=== PATIENT | female | born 2000 | race Two or more races ===

== ENCOUNTER 2020-02-29 19:47 | Emergency (ER) | payer OTHER ==
[2020-02-29 20:04] VITALS: BP 113/82; PULSE 74; TEMP 98; BMI 28.3
[2020-02-29] MEDS ORDERED: IBUPROFEN 600 MG TABLET (FP) PO ONE ×2 (20:33→20:54)
--- NOTE | 2020-02-29 21:02 | PDOC ---
History of Present Illness - General Chief Complaint: Injury Stated Complaint: L THUMB INJURY Time Seen by Provider: 02/29/20 20:22 History Source: Patient Exam Limitations: No Limitations - History of Present Illness Initial Comments: 02/29/20 21:03 Patient is a 19-year-old female with no past medical history presents to the ED with complaint of a left thumb injury after closing her finger in the door. She states the door was a wood door. She had to have somebody open the door because she was unable to do so on her own. She denies any numbness or tingling. The patient does have acrylic nails and states she is concerned that she may have broken her thumb. She has not taken anything for pain. She states the injury happened about 2 hours ago. Past History - Medical History Allergies/Adverse Reactions: Allergies Allergy/AdvReac Type Severity Reaction Status Date / Time No Known Allergies Allergy Verified 02/29/20 20:02 - Reproductive History Is Patient Now?: No - Psycho-Social/Smoking History Smoking History: Never smoked - Substance Abuse Hx (Audit-C & DAST Scrn) How often the patient has a drink containing alcohol: Never Score: In Men: 4 or > Positive; In Women: 3 or > Positive: 0 Screen Result (Pos requires Nsg. Audit-10AR): Negative Review of Systems - Review of Systems Comments:: 02/29/20 21:04 - Review of Systems Able to Perform ROS?: Yes Constitutional: No: Fever, Chills, Loss of Appetite, Night Sweats, Weakness HEENTM: No: Eye Pain, Vision changes, Ear Pain, Throat Pain, Throat Swelling, Mouth Pain, Difficulty Swallowing Respiratory: No: Cough, Shortness of Breath, Wheezing, Sputum Production Cardiac (ROS): No: Chest Pain, Chest Tightness, Palpitations, Irregular Heart Beat, Edema ABD/GI: No: Nausea, Vomiting, Abdominal Pain, Diarrhea Musculoskeletal: No: Muscle Pain, Back Pain, Joint Pain, Muscle Weakness, Neck P ain; positive: Left thumb crush injury Integumentary: No: Lesions, Rash Neurological: No: Headache, Numbness, Tingling, Weakness, Speech Difficulties *Physical Exam - Vital Signs Last Vital Signs Temp Pulse Resp BP Pulse Ox 98.0 F 74 18 113/82 100 02/29/20 20:02 02/29/20 20:02 02/29/20 20:02 02/29/20 20:02 02/29/20 20:02 - Physical Exam 02/29/20 21:04 - Physical Exam General Appearance: Nourished, Appropriately Dressed, No Distress Neck: Supple, No Lymphadenopathy (R), No Lymphadenopathy (L), No Rigidity, No Decreased range of motion Respiratory/Chest: Lungs Clear, Normal Breath Sounds. No Respiratory Distress, No Accessory Muscle Use Cardiovascular: Regular Rhythm, Regular Rate, S1, S2 Musculoskeletal: Normal Inspection. No Decreased Range of Motion; left thumb with obvious subungual hematoma appreciated. False acrylic nail intact. Patient able to flex and extend at the interphalangeal joint and the MCP against resistance. Sensation intact distally. Brisk capillary refill distally. Extremity: Normal Capillary Refill, Normal Inspection Integumentary: Normal Color, Dry. 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 ED Treatment Course - RADIOLOGY Radiology Studies Ordered: Category Date Time Status FINGER(S) LEFT [RAD] Stat Radiology 02/29/20 20:33 Taken - Medications Given in the ED: ED Medications Discontinued Medications Generic Name Dose Route Start Last Admin Trade Name Freq PRN Reason Stop Dose Admin Ibuprofen 600 mg 02/29/20 20:33 02/29/20 20:53 Motrin - PO 02/29/20 20:34 600 mg ONCE ONE Administration Medical Decision Making - Medical Decision Making 02/29/20 20:59 Assessment: Patient is a 19-year-old female with a left thumb crush injury. Plan: -Left thumb x-ray shows no acute fracture -Nail trephination performed in the ED, patient tolerated the procedure well, antibiotics not indicated -Patient given Motrin in the ED -She can follow-up with her primary doctor for further evaluation and treatment. She has been made aware that she can ice her thumb to help with pain and take Motrin or Tylenol for pain. She understands and agrees with this treatment plan and the patient stable for discharge. Discharge - Discharge Information Problems reviewed: Yes Clinical Impression/Diagnosis: Subungual hematoma of left thumb Qualifiers: Encounter type: initial encounter Qualified Code(s): S60.112A - Contusion of left thumb with damage to nail, initial encounter Condition: Stable Disposition: HOME - Follow up/Referral Referrals: [facility] [place] [Provider Group] - Patient Discharge Instructions Patient Printed Discharge Instructions: DI for Subungual Hematoma Additional Instructions: You had blood underneath your left thumbnail that required drainage to help prevent you from losing the nail. Keep the area clean and dry. Keep the bandag e on for the remainder of tonight and then remove in the morning. Wash the area with warm water and soap twice daily and allowed to dry completely. You can keep uncovered while home but you should cover it if away from home. A simple Band-Aid will suffice. Follow-up with your primary doctor within 1 to 2 days for repeat evaluation. If you do not have a doctor you have been referred 1. - Post Discharge Activity
--- OUTSIDE RECORDS SUMMARY | 2020-02-29 21:25 | XMS ---
:2000 Author Organization [facility] Support Name Relationship Address Phone [employer] Unavailable [address] [place] [address] KARINE MOTHER [address] [facility] [place] [phone] [place] [address] Re-disclosure Warning The records that you are about to access may contain information from federally- assisted alcohol or drug abuse programs. If such information is present, then the following federally mandated warning applies: This information has been disclosed to you from records protected by federal confidentiality rules (42 CFR part 2). The federal rules prohibit you from making any further disclosure of this information unless further disclosure is expressly permitted by the written consent of the person to whom it pertains or as otherwise permitted by 42 CFR part 2. A general authorization for the release of medical or other information is NOT sufficient for this purpose. The Federal rules restrict any use of the information to criminally investigate or prosecute any alcohol or drug abuse patient.The records that you are about to access may contain highly sensitive health information, the redisclosure of which is protected by Article 27-F of the [facility] Public Health law. If you continue you may haveaccess to information: Regarding HIV / AIDS; Provided by facilities licensed or operated by the [facility] Office of Mental Health; or Provided by the [facility] Office for People With Developmental Disabilities. If such information is present, then the following [facility] mandated warning applies: This information has been disclosed to you from confidential records which are protected by state law. State law prohibits you from making any further disclosure of this information without the specific written consent of the person to whom it pertains, or as otherwise permitted by law. Any unauthorized further disclosure in violation of state law may result in a fine or fci sentence or both. A general authorization for the release of medical or other information is NOT sufficient authorization for further disclosure. Insurance Providers Payer name Policy type Policy ID Covered Covered democrat's Policy P agustin / Coverage democrat ID relationship to Ledes[employer] Inf ormation type ledesma SELF PAY SP INSURANCE
== END 2020-02-29 21:36 | disposition home or self-care (01) ==
LOC: JERFT 19:47
DX: S60.112A Contusion of left thumb with damage to nail, initial encounter (principal)
CPT/HCPCS: 73140-TC-LT-FY; 99283-25

== ENCOUNTER 2024-03-24 13:58 | Emergency (ER) | payer OTHER ==
[2024-03-24 14:12] VITALS: BP 145/84; PULSE 100; RESP 18; TEMP 98.2; BMI 29.2
[2024-03-24 14:48] LABS: PH,URINE 5.5 (5.0-8.0); URINE APPEARANCE CLEAR; URINE BILIRUBIN NEGATIVE (NEGATIVE); URINE COLOR YELLOW; URINE GLUCOSE (UA) NEGATIVE (NEGATIVE); URINE KETONE TRACE (NEGATIVE); URINE LEUK ESTERASE NEGATIVE (NEGATIVE); URINE NITRITE NEGATIVE (NEGATIVE); URINE PROTEIN NEGATIVE (NEGATIVE); URINE UROBILINOGEN 0.2 mg/dL (0.2-1.0)
== END 2024-03-24 16:53 | disposition home or self-care (01) ==
LOC: JER 13:58
DX: R10.33 Periumbilical pain (principal); R10.2 Pelvic and perineal pain; N83.209 Unspecified ovarian cyst, unspecified side
CPT/HCPCS: 76830-TC; 81003; 84703; 87086; 99284-25